=== PATIENT | female | born 1995 | race Caucasian/White ===

== ENCOUNTER 2023-09-17 00:16 | Emergency (ER) | payer MEDICAID ==
[~2023-09-17] VITALS: Ht 157.5 cm; Wt 100.0 kg
[2023-09-17 00:34] VITALS: O2SAT 100
[2023-09-17 00:54] LABS: BASOPHILS % 0.2 % (0.0-2.0); EOSINOPHILS % 3.6 % (0.0-5.0); HEMATOCRIT. 37.1 % (36.0-48.0); LYMPHOCYTES % 23.6 % (20.0-50.0); MEAN CORPUSCULAR HGB CONC 32.4 g/dL (31.0-37.0); MEAN CORPUSCULAR VOLUME 80.2 fL (81.0-99.0); MEAN PLATELET VOLUME 9.2 fl (7.4-10.4); MONOCYTES % 6.1 % (2.0-8.0); NEUTROPHILS % 66.5 % (40.0-76.0); PLATELET 280 x1000/uL (130-400); RED BLOOD CELL COUNT 4.62 mill/uL (4.2-5.4); RED CELL DISTRIBUTION WIDTH 16.2 % (11.6-14.6); WHITE BLOOD COUNT 9.2 x1000/uL (4.5-11.0)
[2023-09-17 00:56] LABS: CHLORIDE 104 mEq/L (98-107); POTASSIUM 3.5 mEq/L (3.5-5.1); SODIUM 137 mEq/L (136-145)
[2023-09-17 00:57] LABS: CALCIUM 8.9 mg/dL (8.7-10.4); CARBON DIOXIDE 28 mEq/L (21-32)
[2023-09-17 01:02] LABS: CREATININE 0.9 mg/dL (0.6-1.0); GLUCOSE 80 mg/dL (70-105); UREA NITROGEN BLOOD 8 mg/dL (9-23)
[2023-09-17 01:04] LABS: ALANINE AMINOTRANSFERASE 15 IU/L (10-49); ALBUMIN 4.3 g/dL (3.2-4.8); ASPARTATE AMINOTRANSFERASE 26 IU/L (<34); BILIRUBIN TOTAL 0.3 mg/dL (0.1-1.0); PROTEIN TOTAL 7.6 g/dL (6.0-8.3)
[2023-09-17 04:16] LABS: CLARITY URINE CLOUDY (CLEAR); COLOR URINE YELLOW (YELLOW); GLUCOSE URINE NEGATIVE (NEGATIVE); KETONES URINE NEGATIVE (NEGATIVE); LEUKOCYTE ESTERASE URINE NEGATIVE (NEGATIVE); NITRITE URINE NEGATIVE (NEGATIVE); OCCULT BLOOD URINE NEGATIVE (NEGATIVE); PH URINE 7.5 (4.5-8.0); PROTEIN URINE NEGATIVE (NEGATIVE)
[2023-09-17 05:20] LABS: SQUAMOUS EPITHELIAL CELL URINE 2+ /lpf (RARE/1+)
[2023-09-17 05:22] LABS: BACTERIA URINE 2+
[2023-09-17 05:23] LABS: RBC URINE NONE SEEN /hpf (0-2)
[2023-09-17] MEDS: IBUPROFEN 600MG TABLET PO STA (06:49)
[2023-09-17] MEDS ORDERED: NITR-87 MT (08:07)
[2023-09-17] MEDS ORDERED: IBUP-2029 MT (08:07)
[2023-09-17 08:33] VITALS: BP 121/61; PULSE 82; RESP 16; TEMP 98
== END 2023-09-17 08:40 | disposition home or self-care (01) ==
LOC: ER 00:16
DX: K80.80 Other cholelithiasis without obstruction (principal); F41.9 Anxiety disorder, unspecified; J45.909 Unspecified asthma, uncomplicated; Z98.890 Other specified postprocedural states
CPT/HCPCS: 36415; 76705; 80053; 81003; 81025; 85025; 99284

== ENCOUNTER 2024-04-03 16:21 | Emergency (ER) | payer MEDICAID, OTHER ==
[~2024-04-03] VITALS: Ht 167.6 cm; Wt 91.0 kg
[~2024-04-03 16:21] MED LIST: IBUP-2029 MT; NITR-87 MT
[2024-04-03] MEDS: PREDNISONE 20MG TABLET PO STA (18:57)
[2024-04-03] MEDS: IPRATROPIUM BROMIDE (0.02%) 0.5MG/2.5ML NEB HHN STA (19:15)
[2024-04-03] MEDS: ALBUTEROL (0.083%) 2.5MG/3ML NEB HHN STA (19:15)
[2024-04-03 19:34] VITALS: PULSE 96; RESP 20; O2SAT 96
[2024-04-03] MEDS ORDERED: P20 MT (20:41)
[2024-04-03] MEDS ORDERED: ALBU90AE INH (20:41)
[2024-04-03 20:54] VITALS: BP 115/67; PULSE 100; RESP 20; TEMP 37.39188; O2SAT 100
== END 2024-04-03 20:55 | disposition home or self-care (01) ==
LOC: ER 16:21
DX: J45.901 Unspecified asthma with (acute) exacerbation (principal); F41.9 Anxiety disorder, unspecified; Z98.890 Other specified postprocedural states
CPT/HCPCS: 71045; 94640; 99283; J7512; Z7610 ×3